=== PATIENT | female | born 2000 | race Caucasian/White ===

== ENCOUNTER 2020-01-21 11:29 | Emergency (ER) | payer MEDICAID ==
[~2020-01-21] VITALS: Ht 154.9 cm; Wt 55.0 kg
[2020-01-21 13:40] VITALS: BP 115/90
== END 2020-01-21 13:41 | disposition home or self-care (01) ==
LOC: ER 11:29
DX: R53.1 Weakness (principal); R06.02 Shortness of breath; R11.2 Nausea with vomiting, unspecified
CPT/HCPCS: 82962; 99281

== ENCOUNTER 2021-06-20 07:44 | Inpatient (IN) | payer MEDICAID ==
[~2021-06-20] VITALS: Ht 154.9 cm; Wt 69.4 kg
[2021-06-20] MEDS ORDERED: PREN1TAB22 PO (08:22)
[2021-06-20] MEDS ORDERED: FERR325T23 PO (08:22)
[2021-06-20] MEDS ORDERED: NALOXONE HCL 0.4 MG/ML 1ML VIAL IM PRN (09:00)
[2021-06-20] MEDS ORDERED: LIDOCAINE HCL 1% 20ML VIAL (Pyxis) INJ INFIL SCH (09:00)
[2021-06-20] MEDS ORDERED: MISOPROSTOL 200MCG TABLET VG SCH (09:00)
[2021-06-20] MEDS ORDERED: METHYLERGONOVINE MALEATE 0.2 MG/ML IM PRN (09:00)
[2021-06-20] MEDS ORDERED: CARBOPROST TROMETHAMINE 250 MCG/ML AMPUL IM PRN (09:00)
[2021-06-20 10:01] LABS: CLARITY URINE CLEAR (CLEAR); COLOR URINE YELLOW (YELLOW); KETONES URINE NEGATIVE (NEGATIVE); LEUKOCYTE ESTERASE URINE TRACE (NEGATIVE); NITRITE URINE NEGATIVE (NEGATIVE); OCCULT BLOOD URINE NEGATIVE (NEGATIVE); PROTEIN URINE NEGATIVE (NEGATIVE); SPECIFIC GRAVITY URINE 1.021 (1.005-1.030); UROBILINOGEN URINE 0.2 E.U./dL (0.2-1.0)
[2021-06-20 10:27] LABS: *AMPHETAMINES SCREEN URINE NEGATIVE (NEGATIVE); *COCAINE SCREEN URINE NEGATIVE (NEGATIVE); CANNABINOID URINE SCREEN NEGATIVE (NEGATIVE); METHADONE URINE SCREEN NEGATIVE (NEGATIVE); OPIATES URINE SCREEN NEGATIVE (NEGATIVE); PHENCYCLIDINE URINE SCREEN NEGATIVE (NEGATIVE)
[2021-06-20 10:28] LABS: *BARBITURATES SCREEN URINE NEGATIVE (NEGATIVE); *BENZODIAZEPINES SCREEN URINE NEGATIVE (NEGATIVE)
[2021-06-20] MEDS ORDERED: CITRIC ACID/SODIUM CITRATE SOLN 30ML UDC PO NR (10:30)
[2021-06-20] MEDS: LACTATED RINGERS 1,000 ML IV SCH ×3 (10:36→22:30)
[2021-06-20 11:04] LABS: BASOPHILS % 0.3 % (0.0-2.0); EOSINOPHILS % 0.9 % (0.0-5.0); HEMATOCRIT. 36.4 % (36.0-48.0); HEMOGLOBIN. 12.2 g/dL (12.0-16.0); LYMPHOCYTES % 21.6 % (20.0-50.0); MEAN CORPUSCULAR HEMOGLOBIN 32.8 pg (28.0-32.0); MEAN CORPUSCULAR VOLUME 98.2 fL (81.0-99.0); MEAN PLATELET VOLUME 8.7 fl (7.4-10.4); MONOCYTES % 7.4 % (2.0-8.0); NEUTROPHILS % 69.8 % (40.0-76.0); PLATELET 200 x1000/uL (130-400)
[2021-06-20 11:14] LABS: INR 0.9; PARTIAL THROMBOPLASTIN TIME 25.1 sec (23.4-31.0); PROTHROMBIN TIME 9.3 sec (9.6-11.0)
[2021-06-20 13:52] LABS: HEPATITIS B SURFACE ANTIGEN NEGATIVE
[2021-06-20] MEDS: DEXT 5%/LR + PITOCIN 20UNITS/L 1,000 ML IV SCH (17:05)
[2021-06-20] MEDS ORDERED: ROPIVACAINE HCL/PF EPIDURAL 200 ML EP SCH (20:45)
[2021-06-20] MEDS: BUTORPHANOL TARTRATE 2 MG/ML VIAL IV PRN (22:29)
[2021-06-21] MEDS: BUTORPHANOL TARTRATE 2 MG/ML VIAL IV PRN (02:59)
[2021-06-21] MEDS: LACTATED RINGERS 1,000 ML IV SCH (03:17)
[2021-06-21] MEDS ORDERED: ONDANSETRON HCL 4MG/2ML INJ IV PRN (04:45)
[2021-06-21] MEDS ORDERED: MINERAL OIL 30ML BOTTLE TOP NR (06:15)
[2021-06-21] MEDS: DEXT 5%/LR + PITOCIN 20UNITS/L 1,000 ML IV SCH (07:05)
[2021-06-21] MEDS ORDERED: RHO(D) IMMUNE GLOBULIN 300 MCG/SYR IM PRN (07:45)
[2021-06-21] MEDS ORDERED: DEXT 5%/LR + PITOCIN 20UNITS/L 1,000 ML IV SCH (07:45)
[2021-06-21] MEDS ORDERED: IBUPROFEN 800MG TABLET PO PRN (07:45)
[2021-06-21] MEDS ORDERED: BENZOCAINE/LANOLIN/ALOE VERA SPRAY TOP PRN (07:45)
[2021-06-21] MEDS ORDERED: LANOLIN OINT 7GM TUBE TOP PRN (07:45)
[2021-06-21] MEDS ORDERED: IBUPROFEN 400MG TABLET PO PRN (07:45)
[2021-06-21] MEDS ORDERED: PRENATAL VIT/FE FUMARATE/FA TABLET PO SCH (09:00)
[2021-06-21 09:30] VITALS: BP 104/51
[2021-06-21 20:00] VITALS: BP 117/72
[2021-06-22 03:00] VITALS: BP 107/58
[2021-06-22 07:11] LABS: BASOPHILS % 0.1 % (0.0-2.0); EOSINOPHILS % 0.2 % (0.0-5.0); HEMATOCRIT. 29.2 % (36.0-48.0); HEMOGLOBIN. 9.6 g/dL (12.0-16.0); LYMPHOCYTES % 15.4 % (20.0-50.0); MEAN CORPUSCULAR HEMOGLOBIN 32.9 pg (28.0-32.0); MEAN CORPUSCULAR VOLUME 99.9 fL (81.0-99.0); MEAN PLATELET VOLUME 8.7 fl (7.4-10.4); MONOCYTES % 5.5 % (2.0-8.0); NEUTROPHILS % 78.8 % (40.0-76.0); PLATELET 175 x1000/uL (130-400); RED BLOOD CELL COUNT 2.92 mill/uL (4.2-5.4); RED CELL DISTRIBUTION WIDTH 13.5 % (11.6-14.6)
[2021-06-22 08:00] VITALS: BP 96/64
[2021-06-22 15:48] VITALS: BP 98/66
== END 2021-06-22 17:30 | disposition home or self-care (01) | DRG 560 ==
LOC: 8 EST LDRP 07:44 → OBSVTOIN 07:44 → 8EST 06-21 09:29
PROVIDERS: ADMIT Obstetrics & Gynecology; ATTEND Obstetrics & Gynecology
PROC: 10E0XZZ Delivery of Products of Conception, External Approach (ICD-10-PCS; principal; 2021-06-21)
PROC: 0KQM0ZZ Repair Perineum Muscle, Open Approach (ICD-10-PCS; 2021-06-21)
DX: O48.0 Post-term pregnancy (principal); Z37.0 Single live birth; O69.81X0 Labor and delivery complicated by cord around neck, without compression, not applicable or unspecified; O76 Abnormality in fetal heart rate and rhythm complicating labor and delivery; Z3A.41 41 weeks gestation of pregnancy; O70.1 Second degree perineal laceration during delivery; Z20.822 Contact with and (suspected) exposure to COVID-19
CPT/HCPCS: 36415; 76805; 76818; 80305; 81003; 85025; 86592; 86703; 86762; 86850; 86900; 87340; 87426; 88307; 99281; J0595; J2310; J2405; J2590; J3490; J7120